=== PATIENT | female | born 1965 | race Caucasian/White ===

== ENCOUNTER 2018-04-19 19:05 | Emergency (ER) | payer BC ==
[2018-04-19 19:51] LABS: BASOPHILS 0.5 % (0-2); EOSINOPHILS 3.2 % (0-7); HEMATOCRIT 42.4 % (36.0-48.0); HEMOGLOBIN 14.8 g/dL (12-16); IMMATURE GRANULOCYTES 0.4 % (0-5); LYMPHOCYTES 47.6 % (15-50); MCHC 34.9 g/dL (31.0-37.0); MCV 91.8 fL (80.0-100.0); MEAN PLATELET VOLUME 11.5 fL (7.4-10.4); MONOCYTES 9.2 % (2-11); NEUTROPHILS 39.1 % (40-80); PLATELET COUNT 280 10x3/uL (130-400); RBC 4.62 10x6/uL (4.00-5.40); RDW 12.9 % (11.5-14.5); WBC 5.7 10x3/uL (4.8-10.8)
[2018-04-19 19:59] LABS: ALBUMIN 3.7 g/dL (3.4-5.0); ALKALINE PHOSPHATASE 82 U/L (46-116); ALT (SGPT) 33 U/L (10-68); BILIRUBIN - TOTAL 0.58 mg/dL (0.2-1.3); CALC OSMOLALITY 275 mosm/kg (275-300); CALCIUM 9.8 mg/dL (8.5-10.1); CARBON DIOXIDE 27.5 mmol/L (21.0-32.0); CHLORIDE - SERUM 101 mmol/L (98-107); CREATININE - SERUM 0.7 mg/dL (0.6-1.3); GLUCOSE 89 mg/dL (74-106); POTASSIUM - SERUM 4.7 mmol/L (3.5-5.1); PROTEIN - SERUM 7.5 g/dL (6.4-8.2); SODIUM 138 mmol/L (136-145); UREA NITROGEN 16 mg/dL (7-18); eGFR NON AFRICAN AMERICAN > 90 mL/min (90-120)
[2018-04-19 20:10] LABS: CHOL - HDL RATIO 3.9 ratio (2.3-4.1); CHOLESTEROL, TOTAL 232 mg/dL (0-200); CREATINE KINASE 83 UL (21-215); HDL CHOLESTEROL 59 mg/dL (32-96); LDL CHOLESTEROL 139 mg/dL (0-100); LDL-HDL RATIO 2.4 ratio (1.5-3.5); TRIGLYCERIDE 172 mg/dL (30-200)
[2018-04-19 20:12] LABS: TROPONIN-I < 0.017 ng/mL (0.000-0.060)
== END 2018-04-19 22:05 | disposition home or self-care (01) ==
LOC: D.ER 19:05
PROVIDERS: Family Medicine
DX: R07.89 Other chest pain (principal); I10 Essential (primary) hypertension; K21.9 Gastro-esophageal reflux disease without esophagitis; F17.200 Nicotine dependence, unspecified, uncomplicated

== ENCOUNTER → 2019-04-06 08:37 | Outpatient (CLI) | payer OTHER | END | disposition home or self-care (01) | LOC: D.HCCARDIO 08:30 | PROVIDERS: ATTEND Internal Medicine Cardiovascular Disease | DX: R55 Syncope and collapse (principal) ==

== ENCOUNTER 2019-04-13 08:43 | Outpatient (CLI) | payer OTHER ==
[~2019-04-13] VITALS: Ht 165.1 cm; Wt 69.5 kg
--- NOTE | ~2019-04-13 | HEMODYNAMI ---
PATIENT:COSMO GALLEGOS MEDICAL RECORD: [id number] : 69 LOCATION:[facility] ADMISSION DATE: 04/13/19 Generatedon:04/13/201910:06 Patient name: COSMO GALLEGOS Patient #: [id number] SSN: : 1965 Date of study: 04/13/2019 Page: Of Hemodynamic Procedure Report Patient Data Patient Demographics Procedure consent was obtained First Name: COSMO Gender: Female Last Name: ROSY : 1965 Patient #: [id number] Age: 53 year(s) Race: Unknown Additional ID: [id number] Contact details [address]: [address] [place] [address] State: [place] City: [place] Zip code: [address] Admission Admission Data Admission Date: 04/13/2019 Admission Time: 8:43 Weight (lbs.): 153.22 Weight (kg.): 69.5 Procedure Procedure Types Cath Procedure Diagnostic Procedure LHC LHC w/Coronaries Procedure Description Procedure Date Procedure Date: 04/13/2019 Procedure Start Time: 9:56 Procedure End Time: 10:03 Procedure Staff Name Function Rayo Sotelo MD Performing Physician Briana Herrera RT Scrub Sergio Littlejohn RN Nurse Joao Orellana RT Monitor Procedure Data Cath Procedure Fluoroscopy Diagnostic fluoroscopy Total fluoroscopy Time: 1.2 time: 1.2 min min Diagnostic fluoroscopy Total fluoroscopy dose: 274 dose: 274 mGy mGy Contrast Material Contrast Material Type Amount (ml) Isovue 300 41 Entry Location Entry Primary Successful Side Size Upsize Upsize Entry Closure De [place] Cruz ccessful Closure Location (Fr) 1 (Fr) 2 (Fr) Remarks Device Remarks Radial Right 6 Fr Mechanical artery Short Compression Estimated blood loss: 5 ml Diagnostic catheters Device Type Used For End Catheter Placement DIAGNOSTIC [place] 110cm 5 Procedure Fr catheter ([id number]) Procedure Complications No complications Procedure Medications Medication Administration Route Dosage 0.9% NaCl I.V. 100 ml/hr Oxygen etCO2 Nasal cannula 2 l/min Heparin Flush Bag added to field 2 bags (1000units/500ml NS) Lidocaine 2% added to field 20 Radial Cocktail added to field 1 syringe (Verapamil 2mg/Nitro 400mcg/Heparin 1500units) Versed I.V. 2 mg Fentanyl I.V. 100 mcg Versed I.V. 1 mg Radial Cocktail I.A. 1 syringe (Verapamil 2mg/Nitro 400mcg/Heparin 1500units) Hemodynamics Rest Heart Rate: 79 (bpm) Pressure Samples Time Site Value (mmHg) Purpose Heart Use Rate(bpm) 10:00 LV 135/4,28 Snapshot 82 Snapshots Pre Cath Intra NCS Post Cath Vital Signs Time Heart Resp SPO2 etCO2 NIBP (mmHg) Rhythm Pain Sedation Rate (ipm) (%) (mmHg) Status Level (bpm) 9:44:08 69 15 100 31.3 138/91(116) NSR 0 (11) 10(A) , No pain 9:48:15 67 16 100 29.8 140/90(123) NSR 0 (11) 10(A) , No pain 9:52:23 73 18 98 37.3 151/93(116) NSR 0 (11) 10(A) , No pain 9:56:39 74 17 100 35.1 119/81(96) NSR 0 (11) 10(A) , No pain 10:00:43 79 17 97 38.8 130/77(96) NSR 0 (11) 9(A) , No pain Medications Time Medication Route Dose Verified Delivered Reason Notes Effectiveness by by 9:48:12 0.9% NaCl I.V. 100 Sergio Sergio Per ml/hr Annetta Littlejohn physician RN RN 9:48:22 Oxygen etCO2 2 l/min Sergio Sergio for low 02 Nasal Lorigan Lorigan sats cannula RN RN 9:48:33 Heparin Flush added 2 bags Sergio Sergio used for Bag to Lorigan Lorigan procedure (1000units/500ml field RN RN NS) 9:48:43 Lidocaine 2% added 20ml Sergio Sergio for local to vial Lorigan Lorigan anesthetic field RN RN 9:48:55 Radial Cocktail added 1 Sergio Sergio used for (Verapamil to syringe Lorigan Lorigan procedure 2mg/Nitro field RN RN 400mcg/Heparin 1500units) 9:53:15 Versed I.V. 2 mg Sergio Sergio for sedation Lorigan Lorigan RN RN 9:53:25 Fentanyl I.V. 100 mcg Sergio Sergio for sedation Annetta Littlejohn RN, RN 9:58:16 Versed I.V. 1 mg Sergio Hill for sedation Annetta Littlejohn RN, RN 9:59:20 Radial Cocktail I.A. 1 Sergio Cade for (Verapamil syringe Annetta Sotelo MD vasodilation 2mg/Nitro RN 400mcg/Heparin 1500units) Procedure Log Time Note 9:15:22 Diagnostic Cath Status : Elective 9:29:23 Sergio Littlejohn RN sent for patient. Start room use. 9:29:24 Time tracking: Regular hours (M-F 7:00 - 5:00) 9:29:29 Plan of Care:Hemodynamics will remain stable., Cardiac rhythm will remain stable., Comfort level will be maintained., Respiratory function will remain adequate., Patient/ family verbilizes understanding of procedure., Procedure tolerated without complication., Recovers from procedure without complications.. 9:34:20 Patient received from Pre/Post Procedure Room to CCL 2 Alert and oriented. Tansferred to table in Supine position. 9:34:21 Warm blankets applied, and nader hugger turned on for patient comfort. 9:34:21 Correct patient and procedure confirmed by team. 9:34:22 Signed procedure consent form obtained from patient. 9:34:23 ECG and BP/O2 sat monitors applied to patient. 9:39:06 Vital chart was started 9:39:07 Baseline sample Acquired. 9:39:11 Rhythm: sinus rhythm 9:39:13 Full Disclosure recording started 9:39:17 H&P Date Dictated: 04/13/2019 Within 30 days and on chart., H&P Addendum completed by physician on day of procedure. (MUST COMPLETE FOR ALL OUTPATIENTS). 9:39:18 Pre-procedure instructions explained to patient. 9:39:18 Pre-op teaching completed and patient verbalized understanding. 9:39:20 Family in waiting room. 9:39:22 Patient NPO since Midnight. 9:39:23 Is the patient allergic to Iodine/contrast media? No. 9:39:24 Was the patient premedicated? No 9:39:25 Is patient on blood thinner?No 9:39:26 Patient diabetic? No. 9:39:28 Previous problem with sedation/anesthesia? No ? 9:39:30 Snore? Yes 9:39:31 Sleep apnea? No 9:39:32 Deviated septum? No 9:39:32 Opens mouth fully? Yes 9:39:33 Sticks out tongue? Yes 9:39:35 Airway obstruction? No ? 9:39:37 Dentures? No ? 9:39:41 Pre procedure: right dorsailis pedis pulse 2+ Normal; easily identifiable; not easily obliterated 9:39:43 Pre procedure: left dorsailis pedis pulse 2+ Normal; easily identifiable; not easily obliterated 9:39:44 Patient pain scale 0/10 ?. 9:39:49 IV patent on arrival in left forearm with 0.9% NaCl at [facility]. 9:39:51 Lab results completed and on chart. 9:39:55 Right Radial & Right Groin area was prepped with chlora-prep and draped in sterile fashion 9:39:56 Alarms reviewed by R. N. 9:39:56 Sharps counted by scrub and verified by R.N. 9:46:50 Baseline sample Acquired. 9:48:12 0.9% NaCl 100 ml/hr I.V. was administered by Sergio Littlejohn RN; Per physician; 9:48:22 Oxygen 2 l/min etCO2 Nasal cannula was administered by Sergio Littlejohn RN; for low 02 sats; 9:48:33 Heparin Flush Bag (1000units/500ml NS) 2 bags added to field was administered by Sergoi Littlejohn RN; used for procedure; 9:48:40 Patient Weight : 153.22 lbs 9:48:43 Lidocaine 2% 20ml vial added to field was administered by Sergio Littlejohn RN; for local anesthetic; 9:48:55 Radial Cocktail (Verapamil 2mg/Nitro 400mcg/Heparin 1500units) 1 syringe added to field was administered by Sergio Littlejohn RN; used for procedure; 9:52:18 Physician arrived 9:52:18 --------ALL STOP TIME OUT------ 9:52:19 Final Timeout: patient, procedure, and site verified with staff and physician. All members of the team are in agreement. 9:52:21 Right Radial & Right Groin site verified by team. 9:52:24 Maximum allowable Isovue 300 dose 300ml. Physician notified. (300ml for normal creatinines. For patients with creatinine of 1.7 or higher multiply weight(kg) x 5 divided by creatinine.) 9:52:27 Fire Safety Assessment: A--An alcohol-based skin anteseptic being used preoperatively., C--Open oxygen or nitrous oxide is being used., D--An ESU, laser, or fiber-optic light is being used. 9:52:30 Physical assessment completed. ASA score P 2 - A patient with mild systemic disease as per Rayo Sotelo MD. 9:52:32 Sedation plan: IV Moderate Sedation Medication:Versed, Fentanyl 9:53:15 Versed 2 mg I.V. was administered by Sergio Littlejohn RN; for sedation; 9:53:25 Fentanyl 100 mcg I.V. was administered by Sergio Littlejohn RN; for sedation; 9:53:32 Zero performed for pressure channel P1 9:56:26 Use device set Radial Dx or PCI 9:56:27 ACIST Syringe (56039) opened to sterile field. 9:56:28 Medline Cath Pack ([id number]) opened to sterile field. 9:56:29 Bag Decanter () opened to sterile field. 9:56:30 ACIST Hand Control (54080) opened to sterile field. 9:56:30 ACIST Manifold (88088) opened to sterile field. 9:56:30 Tegaderm 4 x 4 (1626W) opened to sterile field. 9:56:31 MBrace Wrist Support ([id number]) opened to sterile field. 9:56:32 SHEATH 6FR Slender (19-1060) opened to sterile field. 9:56:33 DIAGNOSTIC WIRE .035 260cm J wire (727003) opened to sterile field. 9:56:39 Procedure started. 9:56:56 Local anesthetic to right radial artery with Lidocaine 2% by Rayo Sotelo MD.INITIAL ACCESS ONLY 9:57:02 A 6 Fr Short sheath was inserted into the Right Radial artery 9:58:16 Versed 1 mg I.V. was administered by Sergio Littlejohn RN; for sedation; 9:59:20 Radial Cocktail (Verapamil 2mg/Nitro 400mcg/Heparin 1500units) 1 syringe I.A. was administered by Rayo Sotelo MD; for vasodilation; 10:00:00 A DIAGNOSTIC [place] 110cm 5 Fr catheter (674148) was advanced over the wire and used for Procedure. 10:00:17 LV gram done using GILL 10:00:18 Injector settings: Ml/sec: 5, Volume: 15, 10:00:19 LV hemodynamics recorded. 10:00:23 EF : 55 % 10:00:25 LCA angiography performed. 10:01:19 RCA angiography performed. 10:01:51 Catheter removed. 10:01:56 TR BAND Standard ([id number]) opened to sterile field. 10:02:03 Sheath removed intact; hemostasis achieved with Mechanical Compression to the Right Radial artery. 10:02:04 Procedure ended.(Physican Out) 10:02:59 Fluoroscopy time 01.20 minutes. 10:03:04 Fluoroscopy dose: 274 mGy 10:03:04 Flurop Dose total: 274 10:03:08 Contrast amount:Isovue 300 41ml. 10:03:09 Sharps counted by scrub and verified by R.N. 10:03:11 TR band inflated with 12cc of air. 10:03:12 Insertion/operative site no bleeding no hematoma. 10:03:16 Post right radial artery:stable, soft, clean and dry 10:03:17 Post Procedure Pulses reassessed and unchanged 10:03:19 Post-procedure physical assessment completed. ASA score P 2 - A patient with mild systemic disease as per Rayo Sotelo MD. 10:03:21 Post procedure rhythm: unchanged. 10:03:24 Estimated blood loss: 5 ml 10:03:25 Post procedure instruction explained to patient.Patient verbalizes understanding. 10:03:26 Patient needs reinforcement of post procedure teaching. 10:03:44 Procedure and supply charges have been captured, reviewed, submitted and are correct. 10:03:46 Procedure Complication : No complications 10:03:48 Vital chart was stopped 10:03:48 See physician's report for complete and final results. 10:03:49 Report given to Pre/Post Procedure Room. 10:03:51 Patient transfered to Pre/Post Procedure Room with Stretcher. 10:03:52 Procedure ended. 10:03:52 Full Disclosure recording stopped 10:03:57 End room use (Document Last) Device Usage Item Name Manufacture Quantity Catalog Hospital Part Current Minimal Lot# / Number Charge Number Stock Stock Serial# Code ACIST Acist 1 30780 516408 732277 680238 20 Syringe Medical (31009) Systems Inc Medline Medline 1 [id number] 276304 02306 147246 5 Cath Pack ([id number]) Bag Microtek 1 2001S 254644 00828 038640 5 Decanter Medical Inc. () ACIST Hand Acist 1 24594 468655 448382 729050 5 Control Medical (38545) Systems Inc ACIST Acist 1 74843 742756 090988 274191 5 Manifold Medical (75685) Systems Inc Tegaderm 4 3M 1 1626W 359877 468262 578811 5 x 4 (1626W) MBrace Advanced 1 140-0250-00 701592 24608 072882 5 Wrist Vascular Support Dynamics ([id number]) SHEATH 6FR Terumo 1 [id number] 627087 734694 941710 5 Slender (80-1060) DIAGNOSTIC St Jimmy 1 165421 562796 959846 071938 30 WIRE .035 260cm J wire (756021) DIAGNOSTIC Terumo 1 40-3230 751102 810094 305926 5 [place] 110cm 5 Fr catheter (097261) TR BAND Terumo 1 [id number] 928512 606636 164769 40 Standard ([id number]) Signature Audit [place] Stage Time Signature Unsigned Intra-Procedure 04/13/2019 Joao Orellana 10:05:58 AM RT(R) Signatures Monitor : Joao Orellana RT Signature : Date : Time : [facility] [address], [place] [address]
[2019-04-13] MEDS ORDERED: LEVOTHYROXINE125 MCG PO (09:01)
[2019-04-13] MEDS ORDERED: ADDERALL XR 3030 MG PO (09:01)
[2019-04-13] MEDS ORDERED: DOK100 MG PO (09:01)
[2019-04-13] MEDS ORDERED: PRINIVIL10 MG PO (09:02)
[2019-04-13] MEDS ORDERED: IBUPROFEN800 MG PO (09:02)
[2019-04-13] MEDS ORDERED: K-DUR20 MEQ PO (09:03)
[2019-04-13] MEDS ORDERED: FUROSEMIDE40 MG PO (09:03)
[2019-04-13] MEDS ORDERED: PROTONIX40 MG PO (09:03)
[2019-04-13] MEDS ORDERED: FEXOFENADINE HC60 MG PO (09:04)
[2019-04-13] MEDS ORDERED: VITAMIN B-121000 MCG PO (09:04)
[2019-04-13] MEDS ORDERED: VITAMIN D31000 UNIT PO (09:04)
[2019-04-13] MEDS ORDERED: MULTI-DAY VITAM1 TAB PO (09:04)
[2019-04-13] MEDS ORDERED: CINNAMON500 MG PO (09:05)
[2019-04-13 09:24] VITALS: BP 141/83; Ht 165.1 cm; Wt 69.5 kg
[2019-04-13 09:27] LABS: BASOPHILS 0.6 % (0-2); EOSINOPHILS 3.1 % (0-7); HEMATOCRIT 44.9 % (36.0-48.0); HEMOGLOBIN 16.2 g/dL (12-16); IMMATURE GRANULOCYTES 0.2 % (0-5); LYMPHOCYTES 43.8 % (15-50); MCH 31.6 pg (26.0-34.0); MCHC 36.1 g/dL (31.0-37.0); MCV 87.5 fL (80.0-100.0); NEUTROPHILS 43.3 % (40-80); PLATELET COUNT 279 10x3/uL (130-400); RBC 5.13 10x6/uL (4.00-5.40); RDW 12.7 % (11.5-14.5); WBC 5.1 10x3/uL (4.8-10.8)
[2019-04-13 09:29] LABS: CALC OSMOLALITY 285 mosm/kg (275-300); CALCIUM 9.5 mg/dL (8.5-10.1); CARBON DIOXIDE 25.7 mmol/L (21.0-32.0); CHLORIDE - SERUM 108 mmol/L (98-107); CREATININE - SERUM 0.6 mg/dL (0.6-1.3); GLUCOSE 100 mg/dL (74-106); POTASSIUM - SERUM 4.2 mmol/L (3.5-5.1); SODIUM 143 mmol/L (136-145); UREA NITROGEN 15 mg/dL (7-18); eGFR NON AFRICAN AMERICAN > 90 mL/min (90-120)
--- NOTE | 2019-04-13 10:18 | NUR ---
PT ARRIVED BY STRETCHER. PLACED ON MONITORS. RIGHT WRIST TR BAND IN PLACE. PT HEAD OF BED INC TO 30 DEGREES. DENIES PAIN. GIVEN SPRITE PER REQUEST.
--- NOTE | 2019-04-13 10:30 | NUR ---
PT RESTING COMFORTABLY. DENIES NAUSEA/PAIN. RIGHT WRIST TR BAND IN PLACE. NO BLEEDING/HEMATOMA NOTED. VSS. WILL CONTINUE TO MONITOR.
--- NOTE | 2019-04-13 11:03 | NUR ---
3cc OF AIR REMOVED FROM TR BAND. NO BLEEDING/HEMATOMA NOTED. PT TOLERATED WELL. VSS. SET UP WITH SANDWICH TRAY. DENIES NAUSEA/PAIN. FAMILY AT BEDSIDE. CALL LIGHT WITHIN REACH.
--- NOTE | 2019-04-13 11:20 | NUR ---
3cc REMOVED FROM TR BAND. NO BLEEDING/HEMATOMA NOTED. TOLERATED WELL. VSS.
--- NOTE | 2019-04-13 11:35 | NUR ---
3cc OF AIR REMOVED FROM TR BAND. NO BLEEDING/HEMATOMA NOTED. RIGHT AC PIV D/C'D WITH CATH TIP INTACT. PT TOLERATED WELL. PT INSTRUCTED TO GET UP AND GET DRESSED. FAMILY AT BEDSIDE.
--- NOTE | 2019-04-13 11:55 | NUR ---
RIGHT RADIAL TR BAND REMOVED. DRESSING APPLIED. NO BLEEDING/HEMATOMA NOTED. RIGHT WRIST BRACE IN PLACE. PT INSTRUCTED TO KEEP ON FOR 2 HOURS AFTER SHE ARRIVES HOME.
--- NOTE | 2019-04-13 12:00 | NUR ---
DISCUSSED DISCHARGE INSTRUCTIONS WITH PT AND PT'S FAMILY. SHE VOICED UNDERSTANDING.
--- NOTE | 2019-04-13 12:09 | NUR ---
DR. CAMPBELL AT BEDSIDE. SPOKE WITH PT AND PT'S FAMILY .
--- NOTE | 2019-04-13 12:15 | NUR ---
PT TAKEN OUT TO VEHICLE BY WHEELCHAIR. NO S/S OF DISTRESS NOTED. ALL PAPERWORK AND BELONGINGS IN HAND.
--- NOTE | 2019-04-22 11:27 | OP ---
PATIENT NAME: COSMO GALLEGOS MEDICAL RECORD: [id number] :69 LOCATION:D.CAT ADMISSION DATE: SURGEON: DANIAL CAMPBELL MD DATE OF OPERATION: 04/13/2019 PROCEDURES: 1. Left heart catheterization. 2. Selective coronary angiography. 3. Left ventriculogram. INDICATION: Angina and coronary artery disease. PROCEDURE IN DETAIL: After informed consent was obtained and after a detailed explanation of risks, benefits as well as alternative therapies, the patient elected to proceed with angiogram and heart catheterization. The right radial area was prepped and draped in normal sterile fashion. Right radial artery was cannulated via modified Seldinger technique with placement of 5-Greek sheath. All catheters exchanged through this sheath. FINDINGS: Left ventriculogram performed in standard 30-degree GILL view, reveals good cardiac wall motion, ejection fraction 65%. SELECTIVE CORONARY ANGIOGRAPHY: Left main, left anterior descending, left circumflex, right coronary artery are all smooth-walled vessels with no angiographic evidence of coronary artery disease. OVERALL IMPRESSION: 1. No angiographic evidence of coronary artery disease. 2. Normal left heart pressures. 3. Normal left ventricular systolic function. Chest pain is noncardiac in etiology. Stress test was false positive. No further cardiac workup or treatment needs to be ascertained. TRANSINT:[id number] Voice Confirmation ID: [id number] DOCUMENT ID: [id number] DANAIL CAMPBELL MD at 1127 CC: [id number] DICTATION DATE: 04/13/19 1004 [employer] ENGINEER: 04/13/19 1205 DEP CLI 04/13/19 [address] [id number] [place] [address]
== END 2019-04-13 12:15 | disposition home or self-care (01) ==
LOC: D.CATH 08:43
PROVIDERS: ATTEND Internal Medicine Interventional Cardiology
DX: R07.89 Other chest pain (principal); Z01.812 Encounter for preprocedural laboratory examination